=== PATIENT | female | born 1985 | race Caucasian/White ===

== ENCOUNTER → 2016-11-09 | Outpatient (REF) | LOC: WSOH 10:49 | DX: Z02.89 Encounter for other administrative examinations (principal) ==

== ENCOUNTER → 2020-05-07 | Outpatient (REF) | LOC: WSOH 14:49 | DX: Z02.89 Encounter for other administrative examinations (principal) ==

== ENCOUNTER 2021-09-01 12:16 | Inpatient (IN) | payer BC ==
[~2021-09-01] VITALS: Ht 170.2 cm; Wt 69.4 kg
[2021-09-02] VITALS (73 sets, daily range): BP systolic 105–147; BP diastolic 8–94; PULSE 60–112; TEMP 97.8–99.1
--- NOTE | 2021-09-02 06:20 | NUR ---
509634.5 G1L0 arrives on unit for scheduled IOL. Ambulatory to LDR4. Oriented to room and plan of care. Pt reports normal movement. Denies any LOF, VB, or contractions. Changes in to clean gown. 0629EFM explained and placed. VS obtained. Assessment completed. Consent forms explained and signed. 0635IV to left FA. Routine labs obtained. 0655LR infusing to gravity. Pitocin explained and started at 2mu per orders. PCN G explained and started per orders. See EMAR. Questions invited and answered. Denies further needs at this time. Call light within reach.
[2021-09-02] MEDS ORDERED: PRENATAL TABLET PO (07:14)
[2021-09-02] MEDS ORDERED: ZYRTEC 10MG10 MG PO (07:15)
[2021-09-02 07:16] LABS: HEMOGLOBIN 11.6 g/dl (12.5-16.0); MEAN CELL VOLUME 94 fl (80.0-100.0); MEAN CORPUSCULAR HEMOGLOBIN 32 pg (27-31); MEAN CORPUSCULAR HGB CONC 34 g/dl (33.0-37.0); MEAN PLATELET VOLUME 11.5 fl (7.4-10.4); PLATELET COUNT 245 K/mm3 (130-400); RED BLOOD COUNT 3.67 M/mm3 (4.10-5.30); REDCELL DISTRIBUTION WIDTH-CV 12.9 % (11.5-14.5)
[2021-09-02] MEDS ORDERED: ASPIRIN E.C. 8181 MG PO (07:16)
[2021-09-02 07:22] LABS: HEMATOCRIT 34.6 % (37.0-47.0)
[2021-09-02 07:50] LABS: BAND 2 % (0-10); BASOPHIL 1 % (0-2); LYMPHOCYTE 26 % (20.0-51.0); NEUTROPHILS 65 % (42.0-75.2); PLATELET ESTIMATE NORMAL (NORMAL)
[2021-09-02 07:51] LABS: MICROCYTOSIS 1+; POLYCHROMASIA 1+
--- NOTE | 2021-09-02 10:30 | NUR ---
1030Pt on birthing ball. FHR difficult to trace due to maternal position. RN at bedside adjusting EFM.
--- NOTE | 2021-09-02 10:40 | NUR ---
1040Pt reports urge to have BM. SVE /-1. EFM off and pt to bathroom. 1055Pt noted to be more uncomfortable and breathing through contractions. Requesting epidural. Regina Cotton CRNA notified. LR bolus infusing.
--- NOTE | 2021-09-02 11:32 | NUR ---
1132Patient to edge of bed for epidural placement. FHR tracing intermittently due to maternal position. RN remains at bedside adjusting EFM. 1143Unable to trace FHR due to maternal position. Pitocin paused. 1146Epidural placed and test dose at this time by Regina Cotton CRNA. See anesthesia record. 1148RN adjusting EFM. FHR tracing. Pitocin resumed at 16mu. 1152Patient wedge left. Plan of care and safety precautions reviewed. Patient resting with call light within reach.
--- NOTE | 2021-09-02 16:15 | NUR ---
1615Contractions tracing inverse.
--- NOTE | 2021-09-02 16:45 | NUR ---
1645Bilateral side lying hip release.
--- NOTE | 2021-09-02 20:00 | NUR ---
1999- DR. LAKE ON UNIT. REVIEWED STRIP. 2004- DR. LAKE AND THIS RN TO BEDSIDE. 2007- SVE /1. PROVIDER DISCUSSED PLAN OF CARE WITH PATIENT AND ANSWERED QUESTIONS. PATIENT DENIES FURTHER NEEDS AT THIS TIME. 2011- DR. LAKE OUT OF ROOM AND TO LABOR DESK. STAYING ON UNIT AT THIS TIME. 2014- THIS RN HELPED REPOSITION PATIENT RIGHT LATERAL SIDE WITH PEANUT BALL AND LEFT LEG ON PEANUT BALL. 2017- PATIENT PUKING AND REQUESTING ZOFRAN. THIS RN WENT AND PULLED ZOFRAN TO ADMINISTER TO PATIENT, SEE EMAR. PATIENT DENIES FURTHER NEEDS. CALL LIGHT WITHIN REACH.
[2021-09-03] VITALS (25 sets, daily range): BP systolic 67–143; BP diastolic 54–92; PULSE 67–101; TEMP 97.8–98.5
[2021-09-03] MEDS ORDERED: PERCOCET 325 MG1 TA2 PO (01:16)
[2021-09-03] MEDS ORDERED: MOTRIN 800800 MG/TAB PO (01:16)
--- NOTE | 2021-09-03 12:42 | NUR ---
Rhinologist offered congrats to parents and a blessing.
[2021-09-04 04:00] VITALS: BP 97/49; PULSE 72; TEMP 97.8
[2021-09-04 08:00] VITALS: BP 107/71; PULSE 79; TEMP 97.9
[2021-09-04 16:10] VITALS: BP 117/77; PULSE 76; TEMP 97.6
--- NOTE | 2021-09-04 18:20 | NUR ---
Bedside report recieved. Resting in bed with family at bedside. Updated whiteboard and reviewed POC. Questions invited and answered.
[2021-09-04 20:05] VITALS: BP 112/79; PULSE 71; TEMP 97.6
[2021-09-05 08:25] VITALS: BP 120/89; PULSE 82; TEMP 97.9
--- NOTE | 2021-09-05 09:18 | NUR ---
Initial visit; Parents thanked Ditch Inspector for offering congratulations and God's blessings for the of their son. Ditch Inspector thanked family for choosing [facility].
[2021-09-05 16:20] VITALS: BP 125/83; PULSE 72; TEMP 97.8
[2021-09-05 20:18] VITALS: BP 122/77; PULSE 62; TEMP 98.6
[2021-09-06 07:00] VITALS: BP 124/84; PULSE 78; TEMP 98.2
== END 2021-09-06 11:25 | disposition home or self-care (01) | DRG 788 ==
LOC: OB 09-02 06:14 → LDR 09-02 06:14 → OB 09-03 03:00
PROVIDERS: ADMIT Obstetrics & Gynecology
PROC: 3E033VJ Introduction of Other Hormone into Peripheral Vein, Percutaneous Approach (ICD-10-PCS; 2021-09-02)
PROC: 10D00Z1 Extraction of Products of Conception, Low, Open Approach (ICD-10-PCS; principal; 2021-09-03)
DX: O99.824 Streptococcus B carrier state complicating childbirth (principal); O69.81X0 Labor and delivery complicated by cord around neck, without compression, not applicable or unspecified; O99.02 Anemia complicating childbirth; D64.9 Anemia, unspecified; O76 Abnormality in fetal heart rate and rhythm complicating labor and delivery; O62.1 Secondary uterine inertia; O75.89 Other specified complications of labor and delivery; Z37.0 Single live birth; Z3A.39 39 weeks gestation of pregnancy
CPT/HCPCS: J0171; J0690; J1100; J1200; J1885; J2405; J2540; J2590; J7120

== ENCOUNTER 2023-05-03 06:23 | Inpatient (IN) | payer BC ==
[~2023-05-03] VITALS: Ht 170.2 cm; Wt 63.5 kg
[2023-05-03] VITALS (41 sets, daily range): BP systolic 98–149; BP diastolic 56–82; PULSE 56–101; TEMP 97.7–98.2
[~2023-05-03 06:23] MED LIST: ASPIRIN E.C. 8181 MG PO; MOTRIN 800800 MG/TAB PO; PERCOCET 325 MG1 TA2 PO; PRENATAL TABLET PO; ZYRTEC 10MG10 MG PO
--- NOTE | 2023-05-03 06:30 | NUR ---
0630PT AMBULATORY TO UNIT WITH SPOUSE. PT CHANGED INTO GOWN. PT COMFORTABLE IN BED. 0635THIS RN AT BEDSIDE TO PLACE TOCO AND EFM. EFM TRACING CAT I. PT VITAL SIGNS STABLE. PT CAME IN DUE TO CTX BEING 4-6 MINUTES APART. PT REPORTS POSITIVE MOVEMENT. PT DENIES LOF AND DENIES VAGINAL BLEEDING. 0640SVE AT THIS TIME BY THIS RN WITH A SECOND CHECK BY QUETA SCHWAB. 1. 0700DR CRUZ NOTIFIED OF DR LAKE PT HERE. REPORT GIVEN ON PT BY THIS RN. DR CRUZ STATES GET HER ADMITTED AND START THE PENICILLIN G. HE ALSO STATES SHE CAN HAVE AN EPIDURAL WHENEVER.
--- NOTE | 2023-05-03 07:35 | NUR ---
THIS RN AT BEDSIDE. PT STATES SHE THINKS HER WATER JUST BROKE. SHE STATES SHE FELT A GUSH OF FLUID. THIS RN TAKES A LOOK AND BELIEVES SHE DID SROM. THIS RN DID NOT AMNITRACE DUE TO THIS RN PERFORMING AN SVE AN HOUR AGO WITH GEL AND WOULD RESULT IN NOT KNOWING IF IT WAS A FALSE POSITIVE. THIS RN DOCUMENTS THIS TIME SROM TIME.
--- NOTE | 2023-05-03 07:52 | NUR ---
IV STARTED AT THIS TIME BY BRENT YEE RN. LABS DRAWN BY DOCUMENT COORDINATOR ALSO AT THIS TIME. IVF STARTED AT THIS TIME.
[2023-05-03] MEDS ORDERED: NATURAL IRON65 MG (08:01)
[2023-05-03 08:12] LABS: BASO % 0.2 % (0.0-2.0); EOS % 0.1 % (0.0-4.0); GRAN # 10.6 K/mm3 (1.4-6.5); GRAN % 78.1 % (42.2-75.2); HEMOGLOBIN 12.3 g/dl (12.5-16.0); LYMPH # 1.9 K/mm3 (1.2-3.4); LYMPH % 14.2 % (20.0-51.0); MEAN CELL VOLUME 90 fl (80.0-100.0); MEAN CORPUSCULAR HEMOGLOBIN 31 pg (27-31); MEAN CORPUSCULAR HGB CONC 35 g/dl (33.0-37.0); MEAN PLATELET VOLUME 11.6 fl (7.4-10.4); MONO # 0.9 K/mm3 (0.1-0.6); MONO % 6.4 % (1.7-9.3); PLATELET COUNT 227 K/mm3 (130-400); RED BLOOD COUNT 3.92 M/mm3 (4.10-5.30); REDCELL DISTRIBUTION WIDTH-CV 12.6 % (11.5-14.5)
[2023-05-03 08:13] LABS: HEMATOCRIT 35.2 % (37.0-47.0)
--- NOTE | 2023-05-03 08:13 | NUR ---
DR LAKE CALLED AT THIS TIME STATING SHE IS FOLLOWING HER PT. DR LAKE ASSUMES CARE AND TO CALL HER WITH ANY UPDATES. SHE STATES SHE WILL BE UP IN A WHILE.
--- NOTE | 2023-05-03 08:25 | NUR ---
FIRST DOSE OF PENICILLIN G STARTED AT THIS TIME.
--- NOTE | 2023-05-03 09:33 | NUR ---
0915DUANE EFFICIENCY EXPERT NOTIFIED OF PT REQUEST FOR EPIDURAL. 0927DUANE EFFICIENCY EXPERT AT BEDSIDE. PT UP TO SITTING ON SIDE OF PED. PULSE OX PLACED. PT VITAL SIGNS STABLE. DIFFICULT TO TRACE FHT DUE TO MATERNAL POSITIONING. 0933SINGLE SHOT ADMINISTERED AT THIS TIME PER EVITA EFFICIENCY EXPERT. 0940PT RETURNED TO BED. POSITIONED WEDGE LEFT. PT VITAL SIGNS STABLE. EFM TRACING CAT I. SECOND BAG OF LR STARTED. PT COMFORTABLE.
--- NOTE | 2023-05-03 10:12 | NUR ---
1005DR JAYA ON UNIT. 1010DR JAYA AT BEDSIDE. DISCUSSES POC WITH PT. PT VERBALIZES UNDERSTANDING. 1012SVE AT THIS TIME PER DR LAKE. /-1. 1015AROM OF FOREBAG AT THIS TIME PER DR LAKE. MODERATE AMOUNT OF CLEAR FLUID NOTED. PT VITAL SIGNS STABLE. EFM TRACING CAT I. PT COMFORTABLE.
--- NOTE | 2023-05-03 10:30 | NUR ---
1025FOLEY PLACED AT THIS TIME PER THIS RN. 1028PT REPOSITIONED TO RIGHT LATERAL WITH A PEANUT BALL. LOW BLOOD PRESSURE NOTED. 91/52. EFM TRACING CAT I. 1030FIRST DOSE OF EPHEDRINE ADMINISTERED AT THIS TIME. 1033BLOOD PRESSURE RESOLVED. 114/62. EFM TRACING CAT I.
--- NOTE | 2023-05-03 11:35 | NUR ---
SVE PER DR LAKE. . PT TOLERATED WELL. PT VITAL SIGNS STABLE. EFM TRACING CAT I.
--- NOTE | 2023-05-03 12:42 | NUR ---
SECOND DOSE OF PENICILLIN G STARTED. THIRD BAG OF LR STARTED. PT VITAL SIGNS STABLE. EFM TRACING CAT I.
--- NOTE | 2023-05-03 13:40 | NUR ---
SVE PER DR LAKE AT THIS TIME. . PT TOLERATED WELL. PT VITAL SIGNS STABLE. EFM TRACING CAT I.
--- NOTE | 2023-05-03 14:20 | NUR ---
1420SVE PER DR LAKE AT THIS TIME. 9.5/+1. PT TOLERATED WELL. EFM TRACING CAT I. PT VITAL SIGNS STABLE. 1427PT REPOSITIONED TO LEFT SIDE LYING RELEASE.
--- NOTE | 2023-05-03 16:24 | NUR ---
1525SVE BY DR LAKE AT THIS TIME. /+2. NURSERY NURSE NOTIFIED. 1530ROOM AND SUPPLIES SET UP FOR DELIVERY. 1532FOLEY REMOVED AT THIS TIME. 1537DR LAKE AT BEDSIDE. PT POSITIONED FOR PUSHING. EFM TRACING CAT I. PT VITAL SIGNS STABLE. NURSERY NURSE AT BEDSIDE. 1538THIS RN AND DR LAKE BEGAN PUSHING WITH PT AT THIS TIME. GOOD MATERNAL EFFORT. 1620PT AND ROOM SET UP FOR IMPENDING DELIVERY. 1624SVD OF VIABLE MALE INFANT PER DR LAKE. PLACED ON MATERNAL ABDOMEN. CARE ASSUMED BY NURSERY. 1627SVD OF PLACENTA PER DR LAKE. PITOCIN BOLUS STARTED. SECOND DEGREE PERINEAL LACERATION NOTED PER DR LAKE. FUNDUS FIRM AT U. LOCHIA WNL. PT VITAL SIGNS STABLE. REPAIR STARTED AT THIS TIME. 1632REPAIR FINISHED PER DR LAKE. FUNDUS FIRM AT U. LOCHIA WNL. PT VITAL SIGNS STABLE. 1635PERICARE PERFORMED. ICE PACK PLACED ON PERINEUM. PT COMFORTABLE IN BED. FUNDUS FIRM AT U. LOCHIA WNL. PT VITAL SIGNS STABLE.
--- NOTE | 2023-05-03 19:45 | NUR ---
1944 UNABLE TO MOVE LEFT LEG. CAN WIGGLE TOES. MOVES RIGHT LEG WELL. EPID CATH DCD. INT IN PLACE. PERICARE DONE IN BED AND PADS AND PANTIES APPLIED. TO W/C WITH ASSIST X2 AND TO 208. SCHEDULED MOTRIN GIVEN. ICE TO PERINEUM. ORIENTED TO ROOM. KYM MOVE WELL.
[2023-05-04 01:00] VITALS: BP 104/64; PULSE 61; TEMP 98.2
[2023-05-04 04:42] VITALS: BP 99/55; TEMP 98
[2023-05-04] MEDS ORDERED: MOTRIN 800800 MG/TAB PO (06:31)
[2023-05-04 08:30] VITALS: BP 123/67; PULSE 74; TEMP 98.1
--- NOTE | 2023-05-04 09:32 | NUR ---
Initial visit; Parents thanked General Assembler Installer for looking in on them and offering congratulations and God's Blessings.
[2023-05-04 17:15] VITALS: BP 122/78; PULSE 78; TEMP 98.2
[2023-05-04 19:30] VITALS: BP 110/70; PULSE 82; TEMP 98.3
[2023-05-05 08:00] VITALS: BP 104/52; PULSE 76; TEMP 98
== END 2023-05-05 11:20 | disposition home or self-care (01) | DRG 807 ==
LOC: LDRO 06:23 → LDR 07:00 → OB 07:00
PROVIDERS: Obstetrics & Gynecology; ADMIT Obstetrics & Gynecology
PROC: 10E0XZZ Delivery of Products of Conception, External Approach (ICD-10-PCS; principal; 2023-05-03)
PROC: 0KQM0ZZ Repair Perineum Muscle, Open Approach (ICD-10-PCS; 2023-05-03)
DX: O34.211 Maternal care for low transverse scar from previous cesarean delivery (principal); Z37.0 Single live birth; O99.824 Streptococcus B carrier state complicating childbirth; Z3A.39 39 weeks gestation of pregnancy; O99.02 Anemia complicating childbirth; D64.9 Anemia, unspecified; O76 Abnormality in fetal heart rate and rhythm complicating labor and delivery; O70.1 Second degree perineal laceration during delivery; Z23 Encounter for immunization
CPT/HCPCS: J2405; J2540; J2795; J7120